=== PATIENT | female | born 1975 | race Caucasian/White ===

== ENCOUNTER 2019-06-28 19:18 | Emergency (ER) | payer MEDICARE, OTHER ==
[~2019-06-28] VITALS: Ht 157.5 cm; Wt 100.0 kg
[~2019-06-28 19:18] MED LIST: BENZTROPINE MESY2 MG PO; CELEXA20 MG PO; CLOZARIL100 MG PO; DEPAKOTE ER500 MG PO; INDERAL10 MG PO; K-DUR20 MEQ PO; LASIX40 MG PO; NYSTATIN ORAL SU5 ML PO; VANCOMYCIN H1 G/VIA1 IV; ZOSYN 3.3753.375 G1 IV
[2019-06-28 19:32] VITALS: Ht 157.5 cm; Wt 100.0 kg
[2019-06-28 19:41] LABS: BASOPHILS 0.2 % (0-2); EOSINOPHILS 4.4 % (0-7); HEMATOCRIT 36.7 % (36.0-48.0); HEMOGLOBIN 12.9 g/dL (12-16); IMMATURE GRANULOCYTES 0.3 % (0-5); LYMPHOCYTES 37.8 % (15-50); MCH 32.1 pg (26.0-34.0); MCHC 35.1 g/dL (31.0-37.0); MCV 91.3 fL (80.0-100.0); MEAN PLATELET VOLUME 9.9 fL (7.4-10.4); MONOCYTES 6.5 % (2-11); NEUTROPHILS 50.8 % (40-80); PLATELET COUNT 230 10x3/uL (130-400); RBC 4.02 10x6/uL (4.00-5.40); RDW 13.6 % (11.5-14.5)
[2019-06-28 19:56] LABS: HCG SERUM NEGATIVE (NEGATIVE)
[2019-06-28 20:00] LABS: ALBUMIN 3.4 g/dL (3.4-5.0); ANION GAP 9.8 mmol/L (8-16); BILIRUBIN - TOTAL 0.28 mg/dL (0.2-1.3); CALCIUM 8.8 mg/dL (8.5-10.1); CARBON DIOXIDE 32.5 mmol/L (21.0-32.0); CREATININE - SERUM 1.3 mg/dL (0.6-1.3); POTASSIUM - SERUM 3.3 mmol/L (3.5-5.1); PROTEIN - SERUM 7.6 g/dL (6.4-8.2); VALPROIC ACID (DEPAKOTE) 50.6 ug/mL (50.0-100.0)
[2019-06-28 20:42] LABS: UDS - AMPHET NEGATIVE QUAL (NEGATIVE); UDS - BARB NEGATIVE QUAL (NEGATIVE); UDS - BENZO NEGATIVE QUAL (NEGATIVE); UDS - COCAINE NEGATIVE QUAL (NEGATIVE); UDS - OPIATE NEGATIVE QUAL (NEGATIVE); UDS - PCP NEGATIVE QUAL (NEGATIVE); UDS - THC NEGATIVE QUAL (NEGATIVE)
[2019-06-28 20:43] LABS: APPEARANCE CLEAR (CLEAR); BILIRUBIN NEGATIVE (NEGATIVE); COLOR STRAW (YELLOW); GLUCOSE NEGATIVE (NEGATIVE); KETONE NEGATIVE (NEGATIVE); NITRITE NEGATIVE (NEGATIVE); PROTEIN NEGATIVE (NEGATIVE); SPECIFIC GRAVITY 1.005 (1.005-1.020); UROBILINOGEN NORMAL (NORMAL)
[2019-06-28 20:45] LABS: BACTERIA FEW /hpf (NONE SEEN); EPITHELIAL CELLS 0-5 /hpf (0-5); RED CELLS - URINE 0-5 /hpf (0-5); WHITE CELLS - URINE 0-5 /hpf (0-5); YEAST RARE /hpf (NONE SEEN)
[2019-06-29 01:07] VITALS: BP 135/89
== END 2019-06-29 02:36 ==
LOC: D.ER 19:18
PROVIDERS: Family Medicine
DX: F20.9 Schizophrenia, unspecified (principal)